=== PATIENT | female | born 1950 | race Caucasian/White ===

== ENCOUNTER 2017-04-21 12:24 | Emergency (ER) | payer OTHER ==
[2017-04-21 12:31] VITALS: TEMP 98.4; BMI 25.2
--- NOTE | 2017-04-21 13:48 | PDOC ---
History of Present Illness - General Chief Complaint: Rectal Bleed Stated Complaint: BLEEDING Time Seen by Provider: 04/21/17 12:56 History Source: Patient, Family Exam Limitations: Language Barrier - History of Present Illness Initial Comments: 04/21/17 13:43 Patient is a 66F with history of HTN, HLD, Arthritis, MIx2, and arthritis here today complaining of bloody stools. She's had three days of blood streaked stools with associated mild lower abdominal pain. She denies nausea, vomiting, fevers, and chills. She denies a history of constipation and melena. She last had a colonoscopy about 10 years ago, which was normal. She states that she has a history of bleeding after taking aspirin therapy, which was discontinued. She doesn't take any blood thinners. She denies chest pain, shortness of breath, and dysuria. Past History - Past Medical History Allergies/Adverse Reactions: Allergies Allergy/AdvReac Type Severity Reaction Status Date / Time aspirin AdvReac Verified 04/21/17 12:32 Home Medications: Ambulatory Orders Amlodipine Besylate 10 mg PO DAILY 04/21/17 Levothyroxine Sodium [Levo-T] 25 mcg PO DAILY 04/21/17 Losartan Potassium 50 mg PO DAILY 04/21/17 Metoprolol Succinate [Toprol Xl] 50 mg PO DAILY 04/21/17 HTN: Yes Hypercholesterolemia: Yes Other medical history: ARTHRITIS, GLAUCOMA , OSTEOPOROSIS - Surgical History Abdominal Surgery: Yes (HERNIA) - Suicide/Smoking/Psychosocial Hx Smoking History: Never smoked Hx Alcohol Use: No Drug/Substance Use Hx: No Review of Systems - Review of Systems Comments:: 04/21/17 13:46 GENERAL/CONSTITUTIONAL: No fever or chills. No weakness. HEAD, EYES, EARS, NOSE AND THROAT: No change in vision. No sore throat. CARDIOVASCULAR: No chest pain or shortness of breath RESPIRATORY: No cough, wheezing, or hemoptysis. GASTROINTESTINAL: No nausea, vomiting, diarrhea or constipation. GENITOURINARY: No dysuria, frequency, or change in urination. SKIN: No rash NEUROLOGIC: No headache, vertigo, loss of consciousness, or change in strength/ sensation. HEMATOLOGIC/LYMPHATIC: No anemia, easy bleeding, or history of blood clots. ALLERGIC/IMMUNOLOGIC: No hives or skin allergy. *Physical Exam - Vital Signs Last Vital Signs Temp Pulse Resp BP Pulse Ox 98.4 F 92 H 20 140/70 100 04/21/17 12:28 04/21/17 12:28 04/21/17 12:28 04/21/17 12:28 04/21/17 12:28 - Physical Exam Comments: 04/21/17 13:46 GENERAL: Awake, alert, and fully oriented, in no acute distress HEAD: No signs of trauma, normocephalic, atraumatic EYES: PERRLA, EOMI, sclera anicteric, conjunctiva clear ENT: Auricles normal inspection, hearing grossly normal, nares patent, oropharynx clear without exudates. Moist mucosa LUNGS: No distress, speaks full sentences, clear to auscultation bilaterally HEART: Regular rate and rhythm, normal S1 and S2, no murmurs, rubs or gallops, peripheral pulses normal and equal bilaterally. ABDOMEN: Soft, nontender, normoactive bowel sounds. No guarding, no rebound. No masses EXTREMITIES: Normal inspection, Normal range of motion, no edema. No clubbing or cyanosis. NEUROLOGICAL: Cranial nerves II through XII grossly intact. Normal speech, no focal sensorimotor deficits SKIN: Warm, Dry, normal turgor, no rashes or lesions noted. RECTAL: Hemorrhoid at three o'clock, tender, no other masses, no kevin blood seen. ED Treatment Course - LABORATORY CBC & Chemistry Diagram: 04/21/17 13:40 04/21/17 13:40 Medical Decision Making - Medical Decision Making 04/21/17 13:48 66F with history of of CAD, HLD, HTN, and MIx2 here today complaining of rectal bleeding, has a hemorrhoid on exam. Vital signs stable and normal. Will evaluate with CBC, CMP and occult stool. 04/21/17 13:54 Will give general surgery and GI follow up, along with instructions for anusol, sitz baths, and docusate. Lab results pending. 04/21/17 14:10 Laboratory Tests 04/21/17 04/21/17 13:36 13:40 WBC 6.8 Hgb 13.1 Hct 37.6 Plt Count 363 Stool Occult Blood Positive CBC normal. Stool occult blood positive, as expected due to hemorrhoid. CMP pending. 04/21/17 14:17 CMP reassuring. Will discharge home with GI and surgical follow up. *DC/Admit/Observation/Transfer Diagnosis at time of Disposition: Hemorrhoid - Discharge Dispostion Disposition: HOME Condition at time of disposition: Good Admit: No - Referrals Referrals: Wilder Horta MD [Staff Physician] - Kevin Arellano MD [Staff Physician] - - Patient Instructions Printed Discharge Instructions: DI for Hemorrhoids Additional Instructions: Please use sitz baths and anusol to help with the symptoms of the hemorrhoid. Please use colace in order to soften the stool. Please follow up with the GI specialist and surgeon as an outpatient.
[2017-04-21 13:51] LABS: MCH 32.2 pg (25.7-33.7); MEAN CELL VOLUME 92.2 fl (80-96); MEAN PLT VOLUME 8.3 fl (7.5-11.1); PLATELET COUNT 363 K/MM3 (134-434); RDW 12.5 % (11.6-15.6); WHITE BLOOD COUNT 6.8 K/mm3 (4.0-10.0)
--- NOTE | 2017-04-21 14:01 | PDOC ---
Attending Attestation - Resident Resident Name: Efrain Pat - ED Attending Attestation I have performed the following: I have examined & evaluated the patient, The case was reviewed & discussed with the resident, I agree w/resident's findings & plan, Exceptions are as noted - HPI HPI: 04/21/17 13:58 66 yo F with h/o CAD, htn hld, no longer takes aspirin here with c/o rectal bleeding. happened yesterday. happened with stooling. saw blood in toilet. seemed like a lot. no sob. no cp no mod factors. does not c/o abd pain, but has rectal pain. - Physicial Exam PE: 04/21/17 13:59 awake alert lungs clear heart rrr no mrg. abd soft nt nd. ext wwp no edema. rectal exam with prolapsed grape size hemorroid, beefy red, soft, reducible. - Medical Decision Making 04/21/17 14:01 plan stool softners, check cbbc r/o anemia. pain control, prep H and anusol, sit soaks and outpt followup with gi and surgery prn. 04/21/17 14:30 d/w covering fellow for dr. ocasio, informed treatment plan and followup.
[2017-04-21 14:13] LABS: ALBUMIN 4.5 g/dl (3.4-5.0); ANION GAP 9 (8-16); BILIRUBIN,TOTAL 0.5 mg/dL (0.2-1.0); CALCIUM 10.2 mg/dL (8.5-10.1); CO2 26 mmol/L (21-32); CREATININE 0.9 mg/dL (0.55-1.02); GLUCOSE,RANDOM 157 mg/dL (74-106); SGOT/AST 23 U/L (15-37); SGPT/ALT 29 U/L (12-78); TOT PROT 9.1 g/dl (6.4-8.2)
[2017-04-21 14:14] LABS: ALK PHOS 75 U/L (45-117)
[2017-04-21 15:08] VITALS: BP 134/78; PULSE 78
== END 2017-04-21 14:35 | disposition home or self-care (01) ==
LOC: JER 12:24
DX: K64.9 Unspecified hemorrhoids (principal); I25.2 Old myocardial infarction; I10 Essential (primary) hypertension; E78.00 Pure hypercholesterolemia, unspecified; M12.9 Arthropathy, unspecified
CPT/HCPCS: 36415; 80053; 82272; 85027; 99282-25

== ENCOUNTER 2017-08-07 00:12 | Emergency (ER) | payer OTHER ==
[2017-08-07 01:04] VITALS: BMI 25.2
--- NOTE | 2017-08-07 01:05 | PDOC ---
History of Present Illness - General Chief Complaint: Cold Symptoms Stated Complaint: COUGH Time Seen by Provider: 08/07/17 01:03 History Source: Patient Past History - Past Medical History Allergies/Adverse Reactions: Allergies Allergy/AdvReac Type Severity Reaction Status Date / Time aspirin AdvReac Verified 08/07/17 00:55 Home Medications: Ambulatory Orders Amlodipine Besylate 10 mg PO DAILY 04/21/17 Levothyroxine Sodium [Levo-T] 25 mcg PO DAILY 04/21/17 Losartan Potassium 50 mg PO DAILY 04/21/17 Metoprolol Succinate [Toprol Xl] 50 mg PO DAILY 04/21/17 HTN: Yes Hypercholesterolemia: Yes - Surgical History Abdominal Surgery: Yes (HERNIA) - Suicide/Smoking/Psychosocial Hx Smoking History: Never smoked Have you smoked in the past 12 months: No Information on smoking cessation initiated: No Hx Alcohol Use: No Drug/Substance Use Hx: No *Physical Exam - Vital Signs Last Vital Signs Temp Pulse Resp BP Pulse Ox 99.9 F H 93 H 14 127/67 95 08/07/17 00:56 08/07/17 00:56 08/07/17 00:56 08/07/17 00:56 08/07/17 00:56
[2017-08-07] MEDS ORDERED: ALBUTEROL SO4 2.5/IPRATROPIUM 0.5 INH SOL 3 ML VIAL.NEB. NEB ONE (01:30)
--- NOTE | 2017-08-07 01:30 | PDOC ---
History of Present Illness - General Chief Complaint: Cold Symptoms Stated Complaint: COUGH Time Seen by Provider: 08/07/17 01:03 History Source: Patient - History of Present Illness Initial Comments: 08/07/17 01:42 67 year old female c/o cough and nasal congestion x 1 day with worsening cough. + two episodes of loose stool yesterday. denies chest pain, shortness of breath , NV, abdominal pain. 08/07/17 01:45 Past History - Past Medical History Allergies/Adverse Reactions: Allergies Allergy/AdvReac Type Severity Reaction Status Date / Time aspirin AdvReac Verified 08/07/17 00:55 Home Medications: Ambulatory Orders Amlodipine Besylate 10 mg PO DAILY 04/21/17 Levothyroxine Sodium [Levo-T] 25 mcg PO DAILY 04/21/17 Losartan Potassium 50 mg PO DAILY 04/21/17 Metoprolol Succinate [Toprol Xl] 50 mg PO DAILY 04/21/17 Albuterol Sulfate Inhaler - [Ventolin HFA Inhaler -] 1 - 2 inh PO Q4H PRN #1 inhaler 08/07/17 Levofloxacin [Levaquin] 750 mg PO DAILY #7 tab 08/07/17 HTN: Yes Hypercholesterolemia: Yes Other medical history: arthritis, glaucoma - Surgical History Abdominal Surgery: Yes (HERNIA) - Suicide/Smoking/Psychosocial Hx Smoking History: Never smoked Have you smoked in the past 12 months: No Information on smoking cessation initiated: No Hx Alcohol Use: No Drug/Substance Use Hx: No Review of Systems - Review of Systems Able to Perform ROS?: Yes Is the patient limited [place] proficient: No HEENTM: Yes: Nose Congestion Respiratory: Yes: Cough Neurological: No: Symptoms reported, See HPI, Headache, Numbness, Paresthesia, Pre-Existing Deficit, Seizure, Tingling, Tremors, Weakness, Unsteady Gait, Ataxia, Dizziness, Other Psychiatric: No: Anxiety, Depression, Frequent Crying, Stressors, Sleep Pattern Change, Emotional Problems, Mood Swings, Change in Appetite, Other *Physical Exam - Vital Signs Last Vital Signs Temp Pulse Resp BP Pulse Ox 99.9 F H 93 H 14 127/67 95 08/07/17 00:56 08/07/17 00:56 08/07/17 00:56 08/07/17 00:56 08/07/17 00:56 repeat temp 100.4 rectal 08/07/17 01:42 - Physical Exam General Appearance: Yes: Appropriately Dressed Respiratory/Chest: positive: Other (coarse breath sounds, moist cough) Cardiovascular: positive: Regular Rhythm, Regular Rate Gastrointestinal/Abdominal: positive: Normal Bowel Sounds, Soft Extremity: positive: Normal Capillary Refill, Normal Inspection, Normal Range of Motion Integumentary: positive: Normal Color, Dry, Warm Neurologic: positive: Fully Oriented, Alert, Normal Mood/Affect Progress Note - Progress Note Progress Note: A: pneumonia P: chest xray: RLL pneumonia albuterol antibiotics close pmd follow up *DC/Admit/Observation/Transfer Diagnosis at time of Disposition: Pneumonia involving right lung Qualifiers: Pneumonia type: due to unspecified organism Lung location: lower lobe of lung Qualified Code(s): J18.1 - Lobar pneumonia, unspecified organism - Discharge Dispostion Disposition: HOME - Prescriptions Prescriptions: Albuterol Sulfate Inhaler - [Ventolin HFA Inhaler -] 1 - 2 inh PO Q4H PRN #1 inhaler PRN Reason: Cough Levofloxacin [Levaquin] 750 mg PO DAILY #7 tab - Referrals - Patient Instructions Printed Discharge Instructions: Atypical Pneumonia Additional Instructions: take albuterol every 4 hours as needed for cough take levaquin starting tomorrow. follow up with your doctor . return to the ER is symptoms - Post Discharge Activity
[2017-08-07] MEDS ORDERED: ACETAMINOPHEN 325 MG TABLET (FP) PO ONE (01:48)
[2017-08-07] MEDS ORDERED: ALBUTEROL SO4 0.083% IH SOL 2.5 MG/3 ML VIAL.NEB. NEB ONE (02:26)
[2017-08-07] MEDS ORDERED: ACETAMINOPHEN 325 MG TABLET (FP) ONE (02:26)
[2017-08-07] MEDS ORDERED: LEVOFLOXACIN 250 MG TABLET (FP) PO ONE (02:48)
[2017-08-07] MEDS ORDERED: LEVOFLOXACIN 500 MG TABLET (FP) ONE (02:51)
[2017-08-07] MEDS ORDERED: LEVOFLOXACIN 250 MG TABLET (FP) ONE (02:52)
[2017-08-07 03:26] VITALS: BP 110/66; PULSE 91; TEMP 100.3
== END 2017-08-07 03:55 | disposition home or self-care (01) ==
LOC: JER 00:12
PROC: 3E0F7GC Introduction of Other Therapeutic Substance into Respiratory Tract, Via Natural or Artificial Opening (ICD-10-PCS; principal; 2017-08-07)
DX: J18.1 Lobar pneumonia, unspecified organism (principal); I10 Essential (primary) hypertension; E78.00 Pure hypercholesterolemia, unspecified; M12.9 Arthropathy, unspecified
CPT/HCPCS: 71046-TC; 87804; 94640; 99281-25